=== PATIENT | male | born 1950 | race Caucasian/White ===

== ENCOUNTER 2017-10-03 08:16 | Emergency (ER) | payer MEDICARE, OTHER ==
[~2017-10-03] VITALS: Ht 180.3 cm; Wt 64.1 kg
[2017-10-03 08:26] VITALS: Ht 180.3 cm; Wt 64.1 kg
[2017-10-03] MEDS ORDERED: CIALIS5 MG PO (08:27)
[2017-10-03] MEDS ORDERED: GEODON60 MG PO (08:27)
[2017-10-03] MEDS ORDERED: ZOLOFT100 MG PO (08:27)
[2017-10-03] MEDS ORDERED: FLOMAX0.4 MG PO (08:28)
[2017-10-03] MEDS ORDERED: ZOCOR80 MG PO (08:28)
[2017-10-03] MEDS ORDERED: LOSARTAN POTASS25 MG PO (08:28)
[2017-10-03] MEDS ORDERED: MULTIPLE VITAMI1 TA1 PO (08:28)
[2017-10-03] MEDS ORDERED: TYLENOL W/CODEI1 TAB PO (08:29)
[2017-10-03] MEDS ORDERED: PREVACID30 MG PO (08:29)
[2017-10-03 08:58] LABS: BASOPHILS 0.6 % (0-2); EOSINOPHILS 0.4 % (0-7); HEMOGLOBIN 15.2 g/dL (13.5-17.5); IMMATURE GRANULOCYTES 0.2 % (0-5); LYMPHOCYTES 30.7 % (15-50); MCH 32.1 pg (26.0-34.0); MCHC 35.3 g/dL (31.0-37.0); MCV 90.7 fL (80.0-100.0); MONOCYTES 9.2 % (2-11); NEUTROPHILS 58.9 % (40-80); PLATELET COUNT 187 10x3/uL (130-400); RBC 4.74 10x6/uL (4.20-6.10); RDW 12.2 % (11.5-14.5)
[2017-10-03 09:16] LABS: ALBUMIN 4.5 g/dL (3.4-5.0); ANION GAP 11.8 mmol/L (8-16); BILIRUBIN - TOTAL 0.6 mg/dL (0.2-1.3); CALCIUM 9.6 mg/dL (8.5-10.1); CARBON DIOXIDE 29.5 mmol/L (21.0-32.0); CREATININE - SERUM 1.2 mg/dL (0.6-1.3); POTASSIUM - SERUM 4.3 mmol/L (3.5-5.1); PROTEIN - SERUM 7.8 g/dL (6.4-8.2)
[2017-10-03 11:48] LABS: APPEARANCE CLEAR (CLEAR); BILIRUBIN NEGATIVE (NEGATIVE); COLOR YELLOW (YELLOW); GLUCOSE NEGATIVE (NEGATIVE); KETONE NEGATIVE (NEGATIVE); NITRITE NEGATIVE (NEGATIVE); PROTEIN NEGATIVE (NEGATIVE); UROBILINOGEN NORMAL (NORMAL)
[2017-10-03] MEDS ORDERED: COLACE100 MG PO (13:25)
[2017-10-03 13:28] LABS: UDS - AMPHET NEGATIVE QUAL (NEGATIVE); UDS - BARB NEGATIVE QUAL (NEGATIVE); UDS - BENZO POSITIVE QUAL (NEGATIVE); UDS - COCAINE NEGATIVE QUAL (NEGATIVE); UDS - OPIATE POSITIVE QUAL (NEGATIVE); UDS - PCP NEGATIVE QUAL (NEGATIVE); UDS - THC NEGATIVE QUAL (NEGATIVE)
[2017-10-03 14:04] VITALS: BP 140/80
== END 2017-10-03 14:05 | disposition home or self-care (01) ==
LOC: D.ER 08:16
PROVIDERS: Family Medicine
DX: R10.32 Left lower quadrant pain (principal); I10 Essential (primary) hypertension